=== PATIENT | female | born 1985 | race Caucasian/White ===

== ENCOUNTER 2022-02-11 12:42 | Outpatient (CLI) | payer OTHER, SELFPAY ==
--- NOTE | ~2022-02-11 | MR_ITS ---
MR breast BI wo/w con 02/11/2022 14:29 CDT INDICATION: Left breast mass seen on outside examination. Possible implant rupture. TECHNIQUE: MRI of the breasts perform using standard protocol pre-and post IV contrast with the follo wing sequences: Axial T2 STIR, axial T1, axial vibrant T1 with fat suppression precontrast and multip hasic postcontrast. COMPARISON: Mammogram dated 01/31/2022 and ultrasound dated 01/31/2022 FINDINGS: There are no abnormalities on the precontrast sequences. There is marked background parench ymal enhancement. The breast are extremely dense. There are patchy areas of nonmass-like enhancement throughout the right breast, likely physiologic. There are multiple bilateral breast cysts. There are bilateral breast implants. No axillary or internal mammary lymphadenopathy is identified. LEFT BREAST: No signal abnormalities on precontrast sequences. There is marked background parenchyma l enhancement. The breast are extremely dense. There is a focus of nonmasslike enhancement in the upp er outer quadrant of the left breast at 2:00 measuring 1.9 x 0.4 x 1 cm with rapid washout kinetics. There is a small 8 mm mass in the upper outer quadrant of the left breast at 2:00, 4.5 cm from the ni pple, anterior to the implant. There is rapid plateau enhancement, likely benign. At 8:00 in the lowe r inner quadrant, 3.5 cm from the nipple there is a small area of nonmass-like enhancement measuring 1.2 x 0.5 x 1.5 cm along the margin of the implant with rapid washout characteristics. The mass seen on outside ultrasound of the left breast at 4:30 position, 9 cm from the nipple is not definitely sam ntified on the current study. There is bilateral periimplant fluid, left greater than right. There is subcapsular line sign with keyhole sign at multiple locations in the left breast implant, consistent with at least intracapsular implant rupture. No axillary or internal mammary lymph node enlargement identified. IMPRESSION: 1: Right breast: Negative. No evidence of malignancy. BI-RADS category 2. 2: Left breast: Probable benign findings of the left breast as described above. No abnormal mass or enhancement identified at the 4:30 position of the left breast in the area of sonographic abnormality seen on outside study. Left breast implant rupture, at least intracapsular. BI-RADS Category 3. 6 month follow-up diagnostic mammogram and left breast ultrasound recommended. Consider follow-up rep eat MRI of the breasts as well. Reviewed, dictated and finalized at location A. IMPRESSION: 1: Right breast: Negative. No evidence of malignancy. BI-RADS category 2. 2: Left breast: Probable benign findings of the left breast as described above . No abnormal mass or enhancement identified at the 4:30 position of the left b reast in the area of sonographic abnormality seen on outside study. Left breast implant rupture, at least intracapsular. BI-RADS Category 3. 6 month follow-up diagnostic mammogram and left breast ultrasound recommended. Consider follow-up repeat MRI of the breasts as well.
[2022-02-11 13:27] LABS: Estimated Glomerular Filt Rate > 60
== END 2022-02-11 12:43 | disposition home or self-care (01) ==
DX: N63.0 Unspecified lump in unspecified breast (principal); R92.8 Other abnormal and inconclusive findings on diagnostic imaging of breast
CPT/HCPCS: 77049; A9577; C8908